=== PATIENT | female | born 1965 | race African-American/Black ===

== ENCOUNTER 2023-03-06 09:19 | Day surgery (SDC) | payer BC ==
[2023-03-01 14:51] VITALS: BMI 33.8
[2023-03-06 11:56] VITALS: TEMP 98.1
[2023-03-06 11:59] VITALS: BP 113/60; PULSE 69; RESP 19
== END 2023-03-06 12:15 | disposition home or self-care (01) ==
LOC: FASU-ENDO 09:19
PROVIDERS: ATTEND Internal Medicine Gastroenterology
PROC: 0DJD8ZZ Inspection of Lower Intestinal Tract, Via Natural or Artificial Opening Endoscopic (ICD-10-PCS; principal; 2023-03-06 11:00)
DX: Z12.11 Encounter for screening for malignant neoplasm of colon (principal); K64.1 Second degree hemorrhoids